=== PATIENT | female | born 1965 | race Caucasian/White ===

== ENCOUNTER 2023-10-21 11:29 | Outpatient (CLI) | payer MEDICAID | END 2023-10-21 23:59 | disposition home or self-care (01) | LOC: RAD 11:29 | PROVIDERS: ATTEND Internal Medicine | DX: M25.541 Pain in joints of right hand (principal) | CPT/HCPCS: 72200 ==

== ENCOUNTER 2024-01-25 09:31 | Emergency (ER) | payer MEDICAID ==
[~2024-01-25] VITALS: Ht 162.6 cm; Wt 75.0 kg
[2024-01-25 09:47] LABS: BASOPHILS # (AUTO) 0.1 X10'3 (0-0.2); BASOPHILS % (AUTO) 0.5 % (0-1); EOSINOPHILS # (AUTO) 0.1 X10'3 (0-0.9); EOSINOPHILS % (AUTO) 1.1 % (0-6); HEMATOCRIT 42.5 % (35.0-45.0); HEMOGLOBIN 14.2 g/dl (12.0-16.0); LYMPHOCYTES # (AUTO) 1.9 X10'3 (1.1-4.8); LYMPHOCYTES % (AUTO) 18.3 % (21-51); MEAN CORPUSCULAR HEMOGLOBIN 28.3 PG (27.0-31.0); MEAN CORPUSCULAR HGB CONC 33.4 g/dL (33.0-36.5); MEAN CORPUSCULAR VOLUME 84.7 FL (78-98); MONOCYTES # (AUTO) 0.8 X10'3 (0-0.9); MONOCYTES % (AUTO) 8.3 % (2-12); NEUTROPHILS # (AUTO) 7.4 X10'3 (1.8-7.7); NEUTROPHILS % (AUTO) 71.8 % (42-75); PLATELET COUNT 251 X10'3 (140-440); RED BLOOD COUNT 5.02 X10'6 (4.20-5.60); RED CELL DISTRIBUTION WIDTH 13.3 % (11.5-14.5); WHITE BLOOD COUNT 10.3 X10'3 (4.5-11.0)
[2024-01-25 10:10] LABS: ALBUMIN 3.5 G/DL (3.4-5.0); ANION GAP 10 (8-16); CALCIUM 9.4 MG/DL (8.5-10.1); CHLORIDE 104 MMOL/L (99-107); CREATININE 0.53 MG/DL (0.40-0.90); GLUCOSE 121 MG/DL (70-104); POTASSIUM 3.8 MMOL/L (3.5-5.1); PRO BRAIN NATRIURETIC PEPTIDE 303 PG/ML (0-125); SODIUM 138 MMOL/L (135-145); TOTAL CARBON DIOXIDE 23.7 MMOL/L (24-32); eCRCL 97 ML/MIN; eGFR > 90 ML/MIN
[2024-01-25 10:12] LABS: BLOOD UREA NITROGEN 11 MG/DL (7-18); BUN/CREATININE RATIO 20.8 (10.0-20.0)
[2024-01-25 11:00] VITALS: BP 144/68; PULSE 100; RESP 20; TEMP 98.7; O2SAT 97
== END 2024-01-25 12:14 | disposition home or self-care (01) ==
LOC: ER 09:31
DX: R07.89 Other chest pain (principal); Z88.8 Allergy status to other drugs, medicaments and biological substances
CPT/HCPCS: 36415; 71045; 80048; 83880; 84484; 85025; 93005; 99285